=== PATIENT | female | born 1975 ===

== ENCOUNTER 2018-05-13 11:58 | Emergency (ER) | payer OTHER ==
[2018-05-13 13:13] LABS: BASO % 0.2 % (0.0-2.0); EOS % 0.5 % (0.0-4.0); HEMOGLOBIN 12.6 g/dL (12.0-16.0); LYMPH # 1.6 K/uL (1.0-4.3); LYMPH % 21.3 % (20.0-40.0); MEAN CELL VOLUME 88.8 fl (81.0-99.0); MEAN CORPUSCULAR HEMOGLOBIN 29.8 pg (27.0-31.0); MEAN CORPUSCULAR HGB CONC 33.5 g/dL (33.0-37.0); MEAN PLATELET VOLUME 7.6 fl (7.2-11.7); MONO # 0.4 K/uL (0.0-0.8); NEUT # 5.5 K/uL (1.8-7.0); RBC 4.22 Mil/uL (3.80-5.20); RED CELL DISTRIBUTION WIDTH 13.2 % (11.5-14.5); WHITE BLOOD COUNT 7.5 K/uL (4.8-10.8)
[2018-05-13 13:22] LABS: PROTHROMBIN TIME 11.7 Seconds (9.8-13.1)
--- NOTE | 2018-05-13 13:22 | ED PDOC ---
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 Patient reports having heavy bleeding with clots and has to change her pad every 20 minutes. Denies abdominal pain but states having minimal low back pain. PMD: none provided Past Medical History Reviewed: Historical Data, Nursing Documentation, Vital Signs Vital Signs: Last Vital Signs Temp 98.7 F 05/13/18 12:15 Pulse 85 05/13/18 12:15 Resp 18 05/13/18 12:15 BP 158/79 H 05/13/18 12:15 Pulse Ox 99 05/13/18 12:15 - Medical History PMH: No Chronic Diseases - Surgical History Surgical History: No Surg Hx - Family History Family History: States: Unknown Family Hx - Allergies Allergies/Adverse Reactions: Allergies Allergy/AdvReac Type Severity Reaction Status Date / Time No Known Allergies Allergy Verified 05/13/18 12:15 Review of Systems ROS Statement: Except As Marked, All Systems Reviewed And Found Negative Gastrointestinal: Negative for: Abdominal Pain Genitourinary Female: Positive for: Vaginal Bleeding Musculoskeletal: Positive for: Back Pain (lower) Physical Exam - Reviewed Nursing Documentation Reviewed: Yes Vital Signs Reviewed: Yes - Physical Exam Appears: Positive for: Non-toxic, No Acute Distress Head Exam: Positive for: ATRAUMATIC, NORMOCEPHALIC Skin: Positive for: Normal Color, Warm, Dry Eye Exam: Positive for: Normal appearance Neck: Positive for: Normal, Painless ROM Cardiovascular/Chest: Positive for: Regular Rate, Rhythm. Negative for: Murmur Respiratory: Positive for: Normal Breath Sounds. Negative for: Wheezing, Respiratory Distress Gastrointestinal/Abdominal: Positive for: Normal Exam, Soft. Negative for: Tenderness Extremity: Positive for: Normal ROM Neurologic/Psych: Positive for: Alert, Oriented. Negative for: Motor/Sensory Deficits - Laboratory Results Result Diagrams: 05/13/18 13:09 05/13/18 13:09 - ECG O2 Sat by Pulse Oximetry: 99 (RA) Pulse Ox Interpretation: Normal Medical Decision Making Medical Decision Making: Initial Impression: vaginal bleeding Initial Plan: --ABO/RH stat --Type and screen stat --CMP --ED urine --ED urine dipstick --CBC --PTT --Prothrombin time --Pelvis/transvaginal Accession No. : [id number] Patient Name / ID : GRETA YANG / [id number] Exam Date : 05/13/2018 14:02:07 ( Approved ) Study Comment : Sex / Age : F / 42Y Creator : Chadd Ying MD Dictator : Chadd Ying MD Provider Network Analyst : Application Services Manager : Chadd Ying MD Approver2 : Report Date : 05/13/2018 15:14:25 My Comment : Date of service: 05/13/2018 HISTORY: Abnormal vag bleeding COMPARISON: None available. TECHNIQUE: Transabdominal and transvaginal pelvic ultrasound was performed with longitudinal and transverse images submitted for interpretation. FINDINGS: UTERUS: Measures 8.2 x 4.8 x 4.1 cm. Normal in size and appearance. No fibroid or other mass lesion seen. ENDOMETRIUM: Measures 4.0 mm in diameter. Unremarkable. CERVIX: A few tiny nabothian cysts are identified. RIGHT OVARY: Measures 2.3 x 1.9 x 1.9 cm. No solid mass. Normal flow. Scattered follicles identified. LEFT OVARY: Measures 2.7 x 1.6 x 1.2 cm. No solid mass. Normal flow. Scattered follicles identified. FREE FLUID: No significant free fluid noted. OTHER FINDINGS: None. IMPRESSION: Unremarkable pelvic ultrasound. 15:[address] Broussard, recommends outpatient medical scientific liaison referral for possible endometrial biopsy. Findings and plan discussed with patient in [place], expressed verbal understanding. Scribe Attestation: Documented by Luis Alberto Ochoa acting as a scribe for Renee Newman MD. Provider Scribe Attestation: All medical record entries made by the Scribe were at my direction and personally dictated by me. I have reviewed the chart and agree that the record accurately reflects my personal performance of the history, physical exam, medical decision making, and the department course for this patient. I have also personally directed, reviewed, and agree with the discharge instructions and disposition. Disposition - Clinical Impression Clinical Impression: Menorrhagia - Disposition Referrals: [facility] [Outside] Disposition: Routine/Home Disposition Time: 16:37 Condition: STABLE Instructions: Heavy Periods, Endometrial Biopsy Forms: [employer] (Czech) Print Language: CHINESE
[2018-05-13 13:24] LABS: PARTIAL THROMBOPLASTIN TIME 37.1 Seconds (25.6-37.1)
[2018-05-13 13:26] LABS: ALB/GLOB RATIO 1.4 (1.0-2.1); ALBUMIN 4.2 g/dL (3.5-5.0); ALT/SGPT 34 U/L (9-52); AST/SGOT 29 U/L (14-36); BLOOD UREA NITROGEN 18 mg/dl (7-17); CALCIUM 8.7 mg/dL (8.4-10.2); GFR NON-AFRICAN AMERICAN > 60
--- NOTE | 2018-05-13 15:17 | US ---
Date of service: 05/13/2018 HISTORY: Abnormal vag bleeding COMPARISON: None available. TECHNIQUE: Transabdominal and transvaginal pelvic ultrasound was performed with longitudinal and transverse images submitted for interpretation. FINDINGS: UTERUS: Measures 8.2 x 4.8 x 4.1 cm. Normal in size and appearance. No fibroid or other mass lesion seen. ENDOMETRIUM: Measures 4.0 mm in diameter. Unremarkable. CERVIX: A few tiny nabothian cysts are identified. RIGHT OVARY: Measures 2.3 x 1.9 x 1.9 cm. No solid mass. Normal flow. Scattered follicles identified. LEFT OVARY: Measures 2.7 x 1.6 x 1.2 cm. No solid mass. Normal flow. Scattered follicles identified. FREE FLUID: No significant free fluid noted. OTHER FINDINGS: None. IMPRESSION: Unremarkable pelvic ultrasound.
[2018-05-13 16:34] VITALS: PULSE 78; RESP 19
[2018-05-13 16:53] VITALS: BP 127/78; TEMP 97.7
[2018-05-14 10:26] VITALS: O2SAT 99
== END 2018-05-13 16:53 | disposition home or self-care (01) ==
LOC: H.ER 11:58
DX: N92.0 Excessive and frequent menstruation with regular cycle (principal)

== ENCOUNTER 2018-06-23 19:26 | Emergency (ER) | payer OTHER ==
--- NOTE | 2018-06-23 20:56 | ED PDOC ---
HPI: CCC, URI, Sore Throat Time Seen by Provider: 06/23/18 20:29 Chief Complaint (Nursing): Flu-like Symptoms Chief Complaint (Provider): Flu-like Symptoms History Per: Patient, Family (son) History/Exam Limitations: no limitations Onset/Duration Of Symptoms: Days (x1) Current Symptoms Are (Timing): Still Present Additional Complaint(s): 42 year old female arrives to ED with son for an evaluation of nasal congestion associated with general bodyaches, cough with productive yellow sputum, fever, chills, and pleuritic pain for 1 day. She denies any nausea, vomiting, or diarrhea. Patient reports taking Tylenol for relief. PCP: none provided Past Medical History Reviewed: Historical Data, Nursing Documentation, Vital Signs Vital Signs: Last Vital Signs Temp 102.2 F H 06/23/18 19:45 Pulse 105 H 06/23/18 19:45 Resp 20 06/23/18 19:45 BP 150/95 H 06/23/18 19:45 Pulse Ox 97 06/23/18 19:45 - Medical History PMH: No Chronic Diseases - Family History Family History: States: Unknown Family Hx - Living Arrangements Living Arrangements: With Family - Home Medications Home Medications: Ambulatory Orders Medication Instructions Recorded Benzonatate [Tessalon Perles] 100 mg PO BID PRN 5 Days sgl 06/23/18 Ibuprofen [Motrin] 600 mg PO TID 7 Days tab 06/23/18 Oseltamivir Phosphate [Tamiflu] 75 mg PO BID 5 Days capsule 06/23/18 - Allergies Allergies/Adverse Reactions: Allergies Allergy/AdvReac Type Severity Reaction Status Date / Time No Known Allergies Allergy Verified 06/23/18 19:45 Review of Systems ROS Statement: Except As Marked, All Systems Reviewed And Found Negative Constitutional: Positive for: Fever, Chills, Other (general bodyaches) ENT: Positive for: Nose Congestion Respiratory: Positive for: Cough, Pleuritic Pain, Sputum (yellow) Gastrointestinal: Negative for: Nausea, Vomiting, Diarrhea Physical Exam - Reviewed Nursing Documentation Reviewed: Yes Vital Signs Reviewed: Yes - Physical Exam Appears: Positive for: No Acute Distress Head Exam: Positive for: ATRAUMATIC, NORMAL INSPECTION, NORMOCEPHALIC Skin: Positive for: Normal Color Eye Exam: Positive for: Normal appearance, EOMI, PERRL ENT: Positive for: Nasal Congestion. Negative for: Pharyngeal Erythema, Tonsillar Swelling Neck: Positive for: Normal, Supple Cardiovascular/Chest: Positive for: Regular Rate, Rhythm Respiratory: Positive for: Normal Breath Sounds. Negative for: Wheezing, Respiratory Distress Pulses-Radial (L): 2+ Pulses-Radial (R): 2+ Gastrointestinal/Abdominal: Positive for: Normal Exam, Soft. Negative for: Tenderness Back: Positive for: Normal Inspection. Negative for: L CVA Tenderness, R CVA Tenderness Extremity: Positive for: Normal ROM (upper/lower). Negative for: Pedal Edema Neurologic/Psych: Positive for: Alert, Oriented. Negative for: Motor/Sensory Deficits - Laboratory Results Interpretation Of Abn Labs: flu pos - ECG O2 Sat by Pulse Oximetry: 97 (RA) Pulse Ox Interpretation: Normal - Progress ED Course And Treament: 2245: Stable. AAOx3. Tolerated PO. Fu with pcp. Medical Decision Making Medical Decision Making: Time: 2029 Initial Plan: * EKG * Urine * Motrin 600mg PO * Tessalon Perles 100mg PO * Influenza AB Scribe Attestation: Documented by Mary Curry, acting as a scribe for Sang Mathew MD. Provider Scribe Attestation: All medical record entries made by the Scribe were at my direction and personally dictated by me. I have reviewed the chart and agree that the record accurately reflects my personal performance of the history, physical exam, medical decision making, and the department course for this patient. I have also personally directed, reviewed, and agree with the discharge instructions and disposition. Disposition - Clinical Impression Clinical Impression: Influenza - Patient ED Disposition Is Patient to be Admitted: No Counseled Patient/Family Regarding: Studies Performed, Diagnosis, Need For Followup, Rx Given - Disposition Referrals: [facility] [Outside] - 06/26/18 Disposition: Routine/Home Disposition Time: 22:48 Condition: STABLE Additional Instructions: Return if not better in 3 days. Prescriptions: Benzonatate [Tessalon Perles] 100 mg PO BID PRN 5 Days sgl PRN Reason: Cough Ibuprofen [Motrin] 600 mg PO TID 7 Days tab Oseltamivir Phosphate [Tamiflu] 75 mg PO BID 5 Days capsule Instructions: Flu Print Language: NIUEAN
[2018-06-23 22:56] VITALS: BP 108/66; RESP 18
[2018-06-23 23:44] VITALS: PULSE 93; TEMP 98.9; O2SAT 99
--- NOTE | 2018-06-24 23:06 | CARD ---
APPROVED REPORT Date of service: 06/23/2018 EKG Measurement Heart [id number] <Conclusion> Sinus tachycardia Otherwise normal ECG
== END 2018-06-23 23:51 | disposition home or self-care (01) ==
LOC: H.ER 19:26
DX: J11.1 Influenza due to unidentified influenza virus with other respiratory manifestations (principal)